=== PATIENT | male | born 1985 | race Caucasian/White ===

== ENCOUNTER 2018-06-20 18:00 | Emergency (ER) | payer SELFPAY ==
[2018-06-20] MEDS ORDERED: Ketorolac Tromethamine 30 MG/ML VIAL ONE (18:52)
[2018-06-20 18:59] LABS: #Basophils 0.1 thou/uL (0.0-0.2); #Eosinphils 0.2 thou/uL (0.0-0.7); #Monocytes 1.2 thou/uL (0.11-0.59); #Neutrophils 9.3 thou/uL (1.40-6.50); %Basophils 0.5 % (0.0-1.0); %Eosinophils 1.3 % (0.0-10.0); %Lymphocytes 15.6 % (21.0-51.0); %Monocytes 9.2 % (0.0-10.0); %Neutrophils 73.4 % (42.0-75.0); Hemoglobin 14.8 g/dL (14.0-18.0); Mean Corpuscular HGB CONC 35.2 g/dL (32.0-36.0); Mean Corpuscular Hemoglobin 29.9 pg (27.0-31.0); Mean Corpuscular Volume 84.8 fL (78.0-98.0); Mean Platelet Volume 7.3 fL (7.4-10.4); Platelet Count 252 thou/uL (130-400); RBC Distribution Width 12.3 % (11.5-14.5); Red Blood Cell (RBC) Count 4.94 mill/uL (4.70-6.10); White Blood Cell (WBC) Count 12.7 thou/uL (4.8-10.8)
[2018-06-20 19:27] LABS: ALT (SGPT) 30 U/L (8-55); AST (SGOT) 22 U/L (5-34); Albumin 4.9 g/dL (3.5-5.0); Alkaline Phosphatase 92 U/L (40-150); Anion Gap 14 mmol/L (10-20); BUN (Urea Nitrogen) 17 mg/dL (8.9-20.6); Bilirubin, Total 0.8 mg/dL (0.2-1.2); Calc. Creatinine Clearance 0 mL/min (70-130); Calcium 9.9 mg/dL (7.8-10.44); Carbon Dioxide 26 mmol/L (22-29); Chloride 103 mmol/L (98-107); Estimated GFR-MDRD 51; Globulin 3.2 g/dL (2.4-3.5); Glucose 92 mg/dL (70-105); Lipase 18 U/L (8-78); Potassium 3.5 mmol/L (3.5-5.1); Protein, Total 8.1 g/dL (6.0-8.3); Sodium 139 mmol/L (136-145)
[2018-06-20 19:42] LABS: Bilirubin Negative (Negative); Blood, Urine Large (Negative); Clarity CLOUDY (Clear); Glucose, Urine (Dipstick) Negative (Negative); Leukocyte Small (Negative); Nitrite Negative (Negative); Protein, Urine (Dipstick) 100 mg/dL (Neg-Trace); Specific Gravity, Urine 1.033 (1.002-1.036); Urobilinogen 0.2 mg/dL (0.2-1.0); pH, Urine 6.5 (5.0-9.0)
[2018-06-20 19:48] LABS: Bacteria/HPF None Seen HPF (None Seen); Hyaline Casts/LPF 4-6 HYALINE CAST LPF (0-3 Hyaline); Pathc Cast-AUWi Flag 0.58 (0-2.49); RBC/HPF GREATER THAN 50-TNTC HPF (0-3); Squamous Epithelial 0-3 HPF (0-3)
[2018-06-20 20:03] LABS: Crystals/HPF 1+ CA OXALATE HPF (Negative)
--- NOTE | 2018-06-20 20:27 | CT ---
CT ABDOMEN AND PELVIS WITHOUT CONTRAST STONE PROTOCOL 06/20/18 HISTORY: Right sided abdominal pain. COMPARISON: None. FINDINGS: Lung bases are clear. No pericardial effusion. Moderate to severe right sided hydroureteronephrosis due to distal obstructive calculus on the bladde r side of the ureterovesicular junction, measuring 4 x 7 mm. No other calculus is present in the righ t renal collecting system. There is a 2 x 2 mm calculus inferior left renal collecting system. No lef t sided hydroureteronephrosis. Noncontrast evaluation of the spleen, pancreas, liver, gallbladder are all normal. No free intraperitoneal gas or fluid. No dilated loops of large or small bowel. Skeleton is unremarkable. IMPRESSION: 1. Obstructing calculus distal right ureter at the ureterovesicular junction, bladder side of th e ureterovesicular junction, measuring 4 x 7 mm. Moderate to severe right sided hydroureteronephrosis . 2. Small calculus left inferior renal collecting system. No left sided hydroureteronephrosis. POS: [facility]
== END 2018-06-20 20:56 | disposition home or self-care (01) ==
LOC: ERS 18:00
DX: N13.2 Hydronephrosis with renal and ureteral calculous obstruction (principal); F17.210 Nicotine dependence, cigarettes, uncomplicated; Z71.6 Tobacco abuse counseling
CPT/HCPCS: 36415; 74176; 80053; 81003; 81015; 83690; 85025; 96361; 96374; 99406; J1885